=== PATIENT | male | born 1960 | race Caucasian/White ===

== ENCOUNTER → 2020-04-05 | Outpatient (CLI) | payer BC, SELFPAY ==
[2020-04-05 15:14] LABS: Absolute Lymphocyte Count 1.58 X10^3/uL (0.83-4.51); Absolute Neutrophil Count 3.3 X10^3/uL (2.0-7.7); Basophil# 0.02 X10^3/uL; Basophil% 0.4 % (0-1); Eosinophils% 1.8 % (0-5); Hematocrit 44.9 % (40-54); Hemoglobin 14.9 g/dL (13.0-16.5); Lymphocyte # 1.58 X10^3/ul (4.0); Lymphocyte % 27.8 % (19-41); Mean Corp Hgb Conc 33.2 g/dL (32-36); Mean Corpuscular Hgb 31.4 pg (27.0-32.0); Mean Corpuscular Volume 94.5 fL (80-94); Mean Platelet Vol. 10.1 fl (6.2-12.0); Monocyte# 0.63 X10^3/uL; Monocyte% 11.1 % (0-10); NRBC Flagged by Analyzer 0 % (0-5); Neutrophil # 3.34 X10^3/uL (2.7-7.7); Neutrophil % 58.5 % (47-70); Platelet Count 180 K/mm3 (150-450); RBC Distribution Width CV 13.2 % (11.6-14.6); RBC Distribution Width SD 46.3 fl (35.1-43.9); Red Blood Count 4.75 M/mm3 (4.6-6.2); White Blood Count 5.7 K/mm3 (4.4-11.0)
[2020-04-05 15:26] LABS: Erythrocyte Sedimentation Rate 40 mm/hr (0-20)
[2020-04-05 15:41] LABS: CRP < 2.90 mg/L (0.0-3.0); Rheumatoid Factor < 10.0 IU/mL (<15)
[2020-04-06 09:19] LABS: SARS-COV-2 TOTAL ABS Nonreactive (Nonreactive)
[2020-04-08 14:08] LABS: Anti-Scleroderma-70 AB <0.2 AI (0.0-0.9)
[2020-04-08 15:31] LABS: ANTINUCLEAR ANTIBODIES DIRECT Negative (Negative)
[2020-04-08 20:07] LABS: Cytoplasmic Ab (C-ANCA) <1:20 titer (Neg:<1:20)
[2020-04-08 20:36] LABS: Angiotensin Convert Enzyme 27 U/L (14-82); Perinuclear Ab (P-ANCA) <1:20 titer (Neg:<1:20)
== END | disposition home or self-care (01) ==
LOC: MTLAB 12:08
PROVIDERS: PCP Family Medicine; Referring Provider Internal Medicine Pulmonary Disease; Visit Provider Internal Medicine Pulmonary Disease
DX: J84.10 Pulmonary fibrosis, unspecified (principal)
CPT/HCPCS: 36415; 82164; 85025; 85652; 86038; 86140; 86235; 86256; 86431; 86769

== ENCOUNTER → 2020-06-10 07:52 | Outpatient (CLI) | payer BC, SELFPAY ==
--- NOTE | 2020-06-10 07:53 | CT_ITS ---
STUDY: CT CHEST WITHOUT CONTRAST REASON FOR EXAM: Male, 60 years old. PULMONARY FIBROSIS, LOW O2 SATS, FOLLOW UP FROM CALCIUM SCORING DONE AT DIFFERENT FACILITY RADIATION DOSAGE (If Supplied By Facility): CTDIvol = ( 19.52 ) mGy, DLP = ( 708.91 ) mGycm TECHNIQUE: Transaxial imaging was performed without the administration of intravenous contrast material. Multiplanar coronal and sagittal images were reformatted. Individualized dose optimization techniques were used for this CT. COMPARISON: None. FINDINGS: There is evidence of diffuse increased interstitial markings in both lungs in the subpleural distribution. This is more prominent at the bases. This is suggestive of pulmonary fibrosis. There is no demonstrated pleural abnormality. There are calcifications of the coronary arteries. There are multiple small lymph nodes within the mediastinum, which are normal in size and morphology most compatible with reactive lymph hyperplasia. Normal hilar regions. Normal unenhanced pulmonary arteries. There is atherosclerotic calcification of the aortic arch with tortuosity and elongation of the aortic arch and descending thoracic aorta. 50% loss of height of the T12 vertebrae. Small hiatal hernia. CT/Chest without Contrast IMPRESSION: Findings in keeping with the interstitial fibrosis as described. Electronically Signed: Aakash Camargo, at 10:46 EST , Service support ,
== END ==
PROVIDERS: PCP Family Medicine; Referring Provider Internal Medicine Pulmonary Disease; Visit Provider Internal Medicine Pulmonary Disease
DX: J84.10 Pulmonary fibrosis, unspecified (principal)
CPT/HCPCS: 71250

== ENCOUNTER → 2020-09-02 10:14 | Outpatient (CLI) | payer BC, SELFPAY ==
[2020-09-02 12:31] LABS: Erythrocyte Sedimentation Rate 20 mm/hr (0-20)
== END ==
PROVIDERS: PCP Family Medicine; Referring Provider Internal Medicine Pulmonary Disease; Visit Provider Internal Medicine Pulmonary Disease
DX: J84.10 Pulmonary fibrosis, unspecified (principal)
CPT/HCPCS: 36415; 85652

== ENCOUNTER → 2021-01-01 09:31 | Outpatient (CLI) | payer BC, SELFPAY ==
[2021-01-01 12:21] LABS: Erythrocyte Sedimentation Rate 20 mm/hr (0-20)
[2021-01-01 12:47] LABS: CRP < 2.90 mg/L (0.0-3.0)
== END ==
PROVIDERS: PCP Family Medicine; Referring Provider Internal Medicine Pulmonary Disease; Visit Provider Internal Medicine Pulmonary Disease
DX: J84.10 Pulmonary fibrosis, unspecified (principal)
CPT/HCPCS: 36415; 85652; 86140

== ENCOUNTER → 2021-05-15 07:55 | Outpatient (CLI) | payer BC, SELFPAY ==
--- NOTE | 2021-05-15 08:00 | CT_ITS ---
STUDY: CT CHEST WITHOUT CONTRAST REASON FOR EXAM: Male, 61 years old. PULMONARY FIBROSIS RADIATION DOSAGE (If Supplied By Facility): CTDIvol = ( 19.66 ) mGy, DLP = ( 758.91 ) mGycm TECHNIQUE: Transaxial imaging was performed without the administration of intravenous contrast material. Multiplanar coronal and sagittal images were reformatted. Individualized dose optimization techniques were used for this CT. COMPARISON: Comparison is made with prior examination dated 06/10/2020. FINDINGS: Stable mild increased interstitial markings in both lungs in the subpleural distribution more prominent at the lung bases. This is in keeping with the scarring. There is no demonstrated pleural abnormality. There are calcifications of the coronary arteries. There are multiple small lymph nodes within the mediastinum, which are normal in size and morphology most compatible with reactive lymph hyperplasia. Normal hilar regions. Normal unenhanced pulmonary arteries. There is atherosclerotic calcification of the aortic arch and its major cranial branches. There are multi-level degenerative changes of the thoracic spine. Loss of height of the superior endplate of the T12 vertebrae. There is no demonstrated abnormality of the visualized upper abdomen. CT/Chest without Contrast IMPRESSION: Stable examination. Electronically Signed: Aakash Camargo MD at 13:30 EDT , Service support ,
== END ==
PROVIDERS: PCP Family Medicine; Referring Provider Internal Medicine Pulmonary Disease; Visit Provider Internal Medicine Pulmonary Disease
DX: J84.10 Pulmonary fibrosis, unspecified (principal)
CPT/HCPCS: 71250

== ENCOUNTER → 2023-10-13 | Outpatient (CLI) | payer MEDICARE, BC, SELFPAY ==
--- NOTE | 2023-10-13 08:30 | CT_ITS ---
STUDY: CT CHEST WITHOUT CONTRAST REASON FOR EXAM: Male, 63 years old. Pulmonary fibrosis, unspecified RADIATION DOSAGE (If Supplied By Facility): CTDIvol = ( 19.68 ) mGy, DLP = ( 801.51 ) mGycm TECHNIQUE: Transaxial imaging was performed without the administration of intravenous contrast material. Multiplanar coronal and sagittal images were reformatted. Individualized dose optimization techniques were used for this CT. COMPARISON: Comparison is made with prior study dated May 15, 2021. FINDINGS: CHEST Stable mild increased interstitial markings at the lung bases suggestive of scarring. There is no demonstrated pleural abnormality. There are calcifications of the coronary arteries. There are small lymph nodes within the mediastinum, which are normal in size and morphology most compatible with reactive lymph hyperplasia. Normal hilar regions. Normal unenhanced pulmonary arteries. There is atherosclerotic calcification of the aortic arch. There are degenerative changes of the thoracic spine. Stable loss of height of the superior endplate of the T12 vertebrae. Diffuse fatty infiltration of the liver. Mild hyperplasia of the left adrenal gland. CT/Chest without Contrast IMPRESSION: Stable examination. Electronically Signed: Aakash Camargo MD at 12:32 EDT ,
== END | disposition home or self-care (01) ==
LOC: CT 08:29
PROVIDERS: PCP Family Medicine; Referring Provider Internal Medicine Pulmonary Disease; Visit Provider Internal Medicine Pulmonary Disease
DX: J84.10 Pulmonary fibrosis, unspecified (principal)
CPT/HCPCS: 71250